=== PATIENT | female | born 1965 | race Caucasian/White ===

== ENCOUNTER → 2020-03-23 | Outpatient (CLI) | payer MEDICAID ==
[~2020-03-23] MED LIST: DULO30CA52 PO
== END | disposition home or self-care (01) ==
LOC: LAB 11:39
PROVIDERS: ATTEND Obstetrics & Gynecology
DX: Z01.812 Encounter for preprocedural laboratory examination (principal); Z20.828 Contact with and (suspected) exposure to other viral communicable diseases
CPT/HCPCS: 87426

== ENCOUNTER 2020-03-26 05:33 | Day surgery (SDC) | payer MEDICAID ==
[~2020-03-26] VITALS: Ht 162.6 cm; Wt 59.0 kg
[2020-03-26 06:13] LABS: BASOPHILS % 0.7 % (0.0-2.0); EOSINOPHILS % 2.9 % (0.0-5.0); HEMATOCRIT. 43.6 % (36.0-48.0); HEMOGLOBIN. 14.9 g/dL (12.0-16.0); LYMPHOCYTES % 53.3 % (20.0-50.0); MEAN CORPUSCULAR HEMOGLOBIN 33.4 pg (28.0-32.0); MEAN CORPUSCULAR VOLUME 97.7 fL (81.0-99.0); MEAN PLATELET VOLUME 6.4 fl (7.4-10.4); MONOCYTES % 7.5 % (2.0-8.0); NEUTROPHILS % 35.6 % (40.0-76.0); PLATELET 348 x1000/uL (130-400); RED BLOOD CELL COUNT 4.46 mill/uL (4.2-5.4)
[2020-03-26 06:20] LABS: CHLORIDE 109 mEq/L (98-107)
[2020-03-26 06:25] LABS: PARTIAL THROMBOPLASTIN TIME 27.4 sec (23.4-31.0); PROTHROMBIN TIME 10.4 sec (9.6-11.0)
[2020-03-26] MEDS ORDERED: LACTATED RINGERS 1,000 ML IV SCH (06:30)
[2020-03-26 06:31] LABS: CLARITY URINE CLEAR (CLEAR); COLOR URINE YELLOW (YELLOW); KETONES URINE NEGATIVE (NEGATIVE); LEUKOCYTE ESTERASE URINE NEGATIVE (NEGATIVE); NITRITE URINE NEGATIVE (NEGATIVE); OCCULT BLOOD URINE NEGATIVE (NEGATIVE); PROTEIN URINE NEGATIVE (NEGATIVE); SPECIFIC GRAVITY URINE 1.019 (1.005-1.030); UROBILINOGEN URINE 0.2 E.U./dL (0.2-1.0)
[2020-03-26] MEDS ORDERED: SKIN ADHESIVE 0.7 GM EA TOP ONE (06:42)
[2020-03-26] MEDS ORDERED: ROPIVACAINE HCL 10MG/ML 20 ML VIAL EPI ONE (06:42)
[2020-03-26] MEDS ORDERED: VASOPRESSIN 20 UNIT/ML 1ML ONE ×2 (06:43→07:10)
[2020-03-26] MEDS ORDERED: BUPIVACAINE HCL/PF 0.5% (5MG/ML) 10ML ONE (06:43)
[2020-03-26 06:45] LABS: UCG SCREEN NEGATIVE
[2020-03-26] MEDS ORDERED: FENTANYL CITRATE/PF 50MCG/ML 2ML VIAL ONE ×2 (07:14→08:08)
[2020-03-26] MEDS ORDERED: PROPOFOL 200MG/20ML VIAL IV ONE (07:15)
[2020-03-26] MEDS ORDERED: SODIUM CHLORIDE 0.9% 10ML VIAL ONE (07:15)
[2020-03-26] MEDS ORDERED: MIDAZOLAM HCL 2 MG/2 ML VIAL ONE (07:15)
[2020-03-26] MEDS ORDERED: CEFAZOLIN SODIUM 1000MG/VIAL ONE (07:15)
[2020-03-26] MEDS ORDERED: LIDOCAINE HCL/PF 1% 10 MG/ML 5ML VIAL ONE (07:15)
[2020-03-26] MEDS ORDERED: SUCCINYLCHOLINE CHLORIDE 200MG/10ML IV ONE (07:23)
[2020-03-26] MEDS ORDERED: ROCURONIUM BROMIDE 10MG/ML VIAL 5ML IV ONE (07:23)
[2020-03-26] MEDS ORDERED: DEXAMETHASONE 4MG/ML 1ML VIAL ONE (07:53)
[2020-03-26] MEDS ORDERED: ONDANSETRON HCL 4MG/2ML INJ ONE (07:53)
[2020-03-26] MEDS ORDERED: EPHEDRINE SULFATE 50MG/ML VIAL ONE (08:18)
[2020-03-26] MEDS ORDERED: HYDROCODONE/ACETAMINOPHEN 5/325MG TABLET PO PRN (09:45)
[2020-03-26] MEDS ORDERED: MORPHINE SULFATE 4 MG/ML CPJ (NOT FOR IM USE) IV PRN (09:45)
[2020-03-26] MEDS ORDERED: ONDANSETRON HCL 4MG/2ML INJ IV PRN (09:45)
[2020-03-26] MEDS ORDERED: HYDROMORPHONE HCL/PF 2MG/ML CPJ IV PRN (10:00)
[2020-03-26] MEDS ORDERED: HYDROMORPHONE HCL/PF 2MG/ML CPJ ONE (10:10)
[2020-03-26 10:14] VITALS: BP 138/92
[2020-03-26] MEDS ORDERED: LORAZEPAM 2MG/ML CPJ IV NR (10:30)
== END 2020-03-26 11:45 | disposition home or self-care (01) ==
LOC: OR 05:33
PROVIDERS: ATTEND Obstetrics & Gynecology
DX: N85.01 Benign endometrial hyperplasia (principal); N72 Inflammatory disease of cervix uteri; D25.1 Intramural leiomyoma of uterus; F41.9 Anxiety disorder, unspecified; Z79.899 Other long term (current) drug therapy; Z98.890 Other specified postprocedural states
CPT/HCPCS: 36415; 58552; 80048; 81003; 81025; 85025; 85610; 85730; 86850; 86900; 86901; 88300; 88305; 93005; J0330; J0690; J1100; J1170; J2060; J2250; J2405; J2704; J2795; J3010; J3490; S2900